=== PATIENT | male | born 2005 | race Caucasian/White ===

== ENCOUNTER 2025-05-29 23:09 | Emergency (ER) | payer MEDICAID ==
[~2025-05-29] VITALS: Ht 170.2 cm; Wt 65.9 kg
[2025-05-29 23:24] VITALS: TEMP 97.9
[2025-05-29 23:30] VITALS: BP 113/70; PULSE 91; RESP 14; O2SAT 100
[2025-05-29] MEDS: LIDOCAINE 1% 10 ML VIAL SQ ONE (23:38)
[2025-05-29] MEDS ORDERED: IBUP-1492 PO (23:49)
[2025-05-29] MEDS ORDERED: AMOX-457 PO (23:49)
[2025-05-30] MEDS: PERTUSS(ACELL),DIPH,TET/PF 0.5 ML SYRINGE [ADULT] IM. ONE (00:03)
[2025-05-30] MEDS: AMOX TR/POT CLAV 875 MG/125 MG TABLET PO ONE (00:03)
== END 2025-05-30 00:12 | disposition home or self-care (01) ==
LOC: EMS 23:12
DX: S01.511A Laceration without foreign body of lip, initial encounter (principal); F12.90 Cannabis use, unspecified, uncomplicated; F17.210 Nicotine dependence, cigarettes, uncomplicated; W22.8XXA Striking against or struck by other objects, initial encounter; Y93.89 Activity, other specified; Y92.89 Other specified places as the place of occurrence of the external cause; Y99.8 Other external cause status
CPT/HCPCS: 99283; 12011; 90715; 90471; J3490